=== PATIENT | male | born 1970 | race Caucasian/White ===

== ENCOUNTER 2018-11-10 22:53 | Emergency (ER) | payer BC, OTHER ==
[~2018-11-10] VITALS: Ht 167.6 cm; Wt 68.0 kg
--- NOTE | 2018-11-10 23:09 | NUR ---
"BIBSELF C/O LOWER ABDOMINAL PAIN X1 HR. +VOMITTING,+DYSURIA, +L FLANK PAIN +L SIDE GROIN PAIN, -DIARRHEA, -FEVER" PT AAOX4, -SOB, NAD NOTED, VSS ,PENDING MD GRIJALVA
[2018-11-11] MEDS ORDERED: KETOROLAC TROMETHAMINE INJ 30 MG/ML VIAL ONE (00:22)
[2018-11-11 00:24] LABS: BASOPHILS # (AUTO) 0.1 /CMM (0.0-0.2); BASOPHILS % (AUTO) 1.1 % (0.0-2.0); EOSINOPHILS % (AUTO) 0.9 % (0.0-6.0); HEMATOCRIT 44 % (39-51); HEMOGLOBIN 14.8 g/dL (13.5-17.5); LYMPHOCYTES # (AUTO) 1.3 /CMM (0.8-4.8); LYMPHOCYTES % (AUTO) 10.1 % (20.0-44.0); MEAN CORPUSCULAR HGB CONC 34 g/dl (31.0-36.0); MEAN CORPUSCULAR VOLUME 85 fL (80-96); MONOCYTES # (AUTO) 0.8 /CMM (0.1-1.30); MONOCYTES % (AUTO) 6.3 % (2.0-12.0); NEUTROPHILS # (AUTO) 10.4 /CMM (1.8-8.9); NEUTROPHILS % (AUTO) 81.6 % (43.0-81.0); PLATELET COUNT (AUTO) 217 /CMM (150-450); RED BLOOD CELL COUNT(AUTO) 5.21 MIL/uL (4.5-6.0); WHITE BLOOD COUNT (AUTO) 12.7 K/uL (4.3-11.0)
[2018-11-11] MEDS ORDERED: KETOROLAC TROMETHAMINE INJ 30 MG/ML VIAL IV ONE (00:30)
[2018-11-11] MEDS ORDERED: IV NS 0.9% 1,000 ML BAG IV ONE (00:30)
[2018-11-11 00:31] LABS: CALCIUM, SERUM 9.1 mg/dL (8.5-10.1); CREATININE 1.2 mg/dL (0.6-1.3); POTASSIUM 4.2 mmol/L (3.5-5.1)
[2018-11-11] MEDS: TAMSULOSIN 0.4 MG CAP.SR.24H PO ONE ×2 (02:03→02:04)
--- NOTE | 2018-11-11 02:04 | NUR ---
\Patient discharged to home in stable condition. Written and verbal after care instructions given. Patient verbalizes understanding of instruction. IV removed. Catheter intact and site benign. Pressure and 4x4 applied to site. No bleeding noted.
[2018-11-11 02:11] VITALS: BP 130/75
== END 2018-11-11 02:11 | disposition home or self-care (01) ==
LOC: ER 22:56
DX: N20.0 Calculus of kidney (principal); R11.2 Nausea with vomiting, unspecified; Z98.890 Other specified postprocedural states
CPT/HCPCS: 36415; 74176; 80048; 85025; 96361; 96374; 99284; J1885; J7030 ×3